=== PATIENT | female | born 1990 | race American Indian/Alaskan Native ===

== ENCOUNTER 2017-04-18 15:04 | Emergency (ER) | payer MEDICAID ==
[2017-04-18 15:41] VITALS: BP 153/91
--- NOTE | 2017-04-18 16:56 | Emergency Department Report ---
ED Back Pain/Injury HPI - General Chief Complaint: Back Pain/Injury Stated Complaint: BACK PAIN Time Seen by Provider: 04/18/17 16:43 Source: patient Limitations: No Limitations - History of Present Illness Initial Comments: Patient is a 26-year-old [place] female who states that 2 days ago she leaned over to grab something and had intense shooting pains in the lower back. Patient denies any urinary frequency and urinary retention or fecal incontinence. Patient denies any fevers nausea vomiting abdominal pain. She states the pain is 10 out of 10 in severity is worse when she moves. - Related Data Home Medications Medication Instructions Recorded Confirmed Last Taken Fluticasone/[id number]/[id number] 2 puff IH BID 09/24/13 11/15/13 11/14/13 23:00 [Advair HFA 45/21 mcg] Previous Rx's Medication Instructions Recorded Last Taken Type Acetamin/Codeine 120-12Mg/5 ml 5 ml PO TID PRN #5 dose 11/15/13 Unknown Rx [Tylenol/Codeine] Azithromycin [Zithromax Z-VON] 250 mg PO DAILY #6 tablet 11/15/13 Unknown Rx Amoxicillin [Trimox CAP] 500 mg PO Q8H #30 capsule 11/27/15 Unknown Rx Cetirizine HCl [ZyrTEC] 10 mg PO DAILY #20 capsule 11/27/15 Unknown Rx predniSONE [Deltasone] 20 mg PO QDAY #5 tab 11/27/15 Unknown Rx Ibuprofen [Motrin] 600 mg PO Q8H PRN #20 tablet 04/18/17 Unknown Rx methOCARBAMOL [Robaxin TAB] 500 mg PO Q6H PRN #15 tablet 04/18/17 Unknown Rx traMADol [Ultram] 50 mg PO Q6HR PRN #12 tablet 04/18/17 Unknown Rx Allergies Allergy/AdvReac Type Severity Reaction Status Date / Time No Known Allergies Allergy Verified 11/15/13 00:05 ED Review of Systems ROS: Stated complaint: BACK PAIN Other details as noted in HPI Comment: All other systems reviewed and negative ED Past Medical Hx Family history: no significant family history ED Back Pain Physical Exam - Exam General: Vital signs noted. No distress. Alert and acting appropriately. Back/Abdomen: Yes Perilumbar Tenderness, No Abdominal Tenderness, No Perithoracic Tenderness, No Sacroiliac Tenderness, No Flank Tenderness, No Straight Leg Raise Pain Neuro: Yes Normal Sensation, Yes Normal DTR's, Yes Normal Gait, No Motor Weakness ED Course Vital Signs 04/18/17 15:37 Temperature 98.6 F Pulse Rate 114 H Respiratory 16 Rate Blood Pressure 153/91 O2 Sat by Pulse 99 Oximetry ED Medical Decision Making - Medical Decision Making Patient was given something for pain and will be discharged home. Critical care attestation.: If time is entered above; I have spent that time in minutes in the direct care of this critically ill patient, excluding procedure time. ED Disposition Clinical Impression: Lumbar strain Qualifiers: Encounter type: initial encounter Qualified Code(s): S39.012A - Strain of muscle, fascia and tendon of lower back, initial encounter Disposition: TO HOME OR SELFCARE Is pt being admited?: No Does the pt Need Aspirin: No Condition: Stable Instructions: Low Back Strain (ED) Prescriptions: Ibuprofen [Motrin] 600 mg PO Q8H PRN #20 tablet PRN Reason: Pain methOCARBAMOL [Robaxin TAB] 500 mg PO Q6H PRN #15 tablet PRN Reason: Pain traMADol [Ultram] 50 mg PO Q6HR PRN #12 tablet PRN Reason: Pain Referrals: FELIZ CHONG MD [Staff Physician] - 3-5 Days
[2017-04-18] MEDS ORDERED: MOTRIN PO ONE (16:59)
[2017-04-18] MEDS ORDERED: NORCO 7.5/325 PO ONE (16:59)
== END 2017-04-18 17:10 | disposition home or self-care (01) ==
LOC: ED 15:04
DX: S39.012A Strain of muscle, fascia and tendon of lower back, initial encounter (principal); X58.XXXA Exposure to other specified factors, initial encounter; Y93.89 Activity, other specified; Y92.89 Other specified places as the place of occurrence of the external cause; Y99.8 Other external cause status
CPT/HCPCS: 99282